=== PATIENT | male | born 2005 | race Caucasian/White ===

== ENCOUNTER 2025-07-01 21:14 | Emergency (ER) | payer MEDICAID ==
[~2025-07-01] VITALS: Ht 172.7 cm; Wt 68.2 kg
[2025-07-01 21:20] VITALS: BP 110/72; PULSE 110; RESP 16; TEMP 98.9; O2SAT 97
--- NOTE | 2025-07-01 22:11 | Physician Documentation ---
History of Present Illness ~ Chief Complaint: Toe pain Stated Complaint: INFECTED TOE Time Seen by MD: 21:35 HPI 20-year-old male presents to the ED with a complaint of a right great toe pain. States he developed this infection of the last week. Says it hurts most side of his right great toe. Denies any fevers or nausea or vomiting. Reports drainage from the site. Tetanus witin 5 years: No Medication Reconciliation Allergies: Coded Allergies: chocolate (Verified Allergy, Unknown, 07/01/25) Uncoded Allergies: BEES (Allergy, Unknown, 07/01/25) Scheduled Sulfamethoxazole/Trimethoprim (Septra Ds Tab), 1 TAB PO Q12H Review of Systems All Other Systems at this time: Reviewed and Negative ROS As stated above in the HPI, otherwise all systems are reviewed and negative. Physical Exam Vital Signs: Temperature: 98.9, Source: Oral, Heart Rate: 110, Respiratory Rate: 16, BP: 110/72, Pulse Oximetry: 97, Weight: 68.180 Oxygen Flow Rate: 0 Physical Exam General: Alert, no apparent distress. . Extremities: Normal range of motion, no deformity.right great toe, swollen with nail imbedded on both sides Neurologic: Oriented x4. Psychiatric: Normal mood and affect. Skin: Normal color, warm and dry. No edema, no ecchymosis. Procedures Ultrasound Procedure Note B/L paronychia repair right great toe two horns removed after lidocaine admin Progress Results/Orders Results/Orders Orders - EDI TEJEDA NP Laceration/I&D Tray Set Up (07/01/25 ) Completed Orders - EDI TEJEDA [employer]BER Lidocaine 1% 30ml Vial (Xylocaine 1% Via (07/01/25 22:08) Vital Signs 07/01/25 21:20 Temp 98.9 Pulse 110 Resp 16 B/P (MAP) 110/72 Pulse Ox 97 O2 Flow Rate 0 Medical Decision Making Findings Patient tolerated procedure well. I am going to place him on antibiotics. Told him to take care of the area and keep it clean and dry Departure Disposition: 01 HOME / SELF CARE / HOMELESS Impression: Primary Impression: Toe swelling Condition: Stable Discharge Instructions: Ingrown Toenail Referrals: NO PRIMARY CARE PROVIDER (PCP) Prescriptions Sulfamethoxazole/Trimethoprim (Septra Ds Tab) 800 Mg/160 Mg Tablet 1 TAB PO Q12H for 10 Days, #20 TAB Prov: EDI TEJEDA NP 07/01/25 Education Educated: Patient Educated regarding: diagnosis Signature Scribe Signature: g Attestation: Scribed for Edi Tejeda Hot Oiler by Edi Tejeda - ROLA . 07/01/25 22:44 EDI TEJEDA NP Jul 01, 2025 22:11
[2025-07-01] MEDS: LIDOcaine 1% 30ml preserv. free vial SQ STA (22:16)
[2025-07-01] MEDS ORDERED: SULF1TAB45 PO (22:32)
== END 2025-07-01 23:20 | disposition home or self-care (01) ==
LOC: ER 21:15
DX: M79.674 Pain in right toe(s) (principal); M79.89 Other specified soft tissue disorders; Z88.8 Allergy status to other drugs, medicaments and biological substances; Z79.899 Other long term (current) drug therapy
CPT/HCPCS: 10060; 99283; J7030; A6449